=== PATIENT | male | born 1965 | race Caucasian/White ===

== ENCOUNTER 2019-06-12 14:09 | Outpatient (CLI) | payer BC ==
--- NOTE | 2019-06-12 14:35 | RAD ---
Exam: XR Knee Lt 2 View HISTORY: Acute left knee pain. COMPARISON: None FINDINGS: A superior patellar enthesophyte is identified. No acute fracture, dislocation, or other acute osseous abnormality is identified. IMPRESSION: No acute osseous abnormality is identified.
== END 2019-06-12 14:10 | disposition home or self-care (01) ==
LOC: BICRAD 14:09
PROVIDERS: ATTEND Family Medicine
DX: M25.562 Pain in left knee (principal)

== ENCOUNTER 2019-07-01 07:11 | Outpatient (CLI) | payer BC ==
--- NOTE | 2019-07-01 10:13 | MRI ---
MRI OF LEFT KNEE WITHOUT CONTRAST: Date: 07/01/2019 INDICATION: Acute left knee pain. COMPARISON: Radiograph of left knee dated 06/12/2019. FINDINGS: There is a full thickness articular cartilage defect involving the lateral femoral trochlea on image 12 of series 4, and image 21 of series 8, measuring 1.1 x 0.6 cm with underlying prominent subchondra l bone marrow edema. There is an associated full thickness defect involving the lateral patellar face t measuring 3.0 x 5.0 mm in size. There is a full thickness defect involving the median patellar ridg e with subchondral edema measuring 8.0 mm on image 7 of series 4. There is diffuse thinning seen invo lving the articular cartilage of the patellofemoral compartment with small marginal osteophytes. The articular cartilage of the femorotibial compartments appears relatively well maintained. There is mil d diffuse thinning and very mild marginal osteophytes. There is mild to moderate osteoarthritic tamayo e involving the proximal tibiofibular articulation with associated subchondral cyst-like abnormality involving the proximal fibular head. The MCL, ACL, PCL, and lateral collateral ligament complex is intact. The medial and lateral menisci are intact. The extensor mechanism is intact. No popliteal cyst is identified. No large joint effusion is noted. IT band and popliteus appear withi n normal limits. IMPRESSION: 1. Mild osteoarthrosis of the left knee with areas of focal full thickness articular cartilage thinn ing involving the patella and lateral femoral trochlea with underlying subchondral edema. 2. The menisci are intact. 3. ACL, PCL, MCL, and LCLC are intact. POS: [facility]
== END 2019-07-01 07:12 | disposition home or self-care (01) ==
LOC: BICMRI 07:11
PROVIDERS: ATTEND Family Medicine
DX: M25.562 Pain in left knee (principal); M17.12 Unilateral primary osteoarthritis, left knee

== ENCOUNTER 2020-10-11 06:57 | Outpatient (CLI) | payer BC | END 2020-10-11 06:58 | disposition home or self-care (01) | LOC: BICULT 06:57 | PROVIDERS: ATTEND Family Medicine | DX: R10.11 Right upper quadrant pain (principal); R16.0 Hepatomegaly, not elsewhere classified | CPT/HCPCS: 93975 ==

== ENCOUNTER 2020-11-01 07:09 | Outpatient (CLI) | payer BC ==
[2020-11-01] MEDS ORDERED: Magnevist 469MG/ML 20 ML VIAL ONE (09:48)
== END 2020-11-01 07:10 | disposition home or self-care (01) ==
LOC: BICMRI 07:09
PROVIDERS: ATTEND Family Medicine
DX: R16.0 Hepatomegaly, not elsewhere classified (principal); N28.1 Cyst of kidney, acquired; I78.8 Other diseases of capillaries
CPT/HCPCS: 74183